=== PATIENT | male | born 1965 | race Caucasian/White ===

== ENCOUNTER 2016-12-13 15:40 | Inpatient (IN) | payer MEDICAID, OTHER ==
[~2016-12-13] VITALS: Ht 182.9 cm; Wt 74.8 kg
--- NOTE | 2016-12-13 16:01 | NUR ---
PT TO ED ROOM 02./ MID STERNAL CHEST PRESSURE X 4 DAYS, WORSENING AT NIGHT . A/A/O. SIDE RAISL UP. HOB ELEVATED. CONNECTED TO MONITOR. AWAITING EVALUATION BY ER PROVIDER.
[2016-12-13 16:23] LABS: BASOPHILS % (AUTO) 0.3 % (0.0-2.0); EOSINOPHILS # (AUTO) 0.1 /CMM (0.0-0.7); EOSINOPHILS % (AUTO) 0.7 % (0.0-6.0); HEMATOCRIT 47 % (39-51); HEMOGLOBIN 15.9 g/dL (13.5-17.5); LYMPHOCYTES # (AUTO) 3.8 /CMM (0.8-4.8); MEAN CORPUSCULAR HEMOGLOBIN 33 PG (26.0-33.0); MEAN CORPUSCULAR HGB CONC 34 g/dl (31.0-36.0); MEAN CORPUSCULAR VOLUME 99 fL (80-96); MONOCYTES # (AUTO) 0.9 /CMM (0.1-1.30); NEUTROPHILS # (AUTO) 7.8 /CMM (1.8-8.9); PLATELET COUNT (AUTO) 197 /CMM (150-450); RDW COEFFICIENT OF VARIATION 12.5 (11.5-15.0); RED BLOOD CELL COUNT(AUTO) 4.77 MIL/uL (4.5-6.0); WHITE BLOOD COUNT (AUTO) 12.6 K/uL (4.3-11.0)
--- NOTE | 2016-12-13 16:30 | NUR ---
television news photographer notes Received report from Shashank ENGRAVER [employer]OD and will put all admission orders and diet in the system. NPO patient post midnight. Vital signs checked and recorded. Endorsed to next shift RN to continue care.
[2016-12-13 16:36] LABS: CALCIUM, SERUM 9.3 mg/dL (8.5-10.1); CARBON DIOXIDE 30 mmol/L (21-32); CHLORIDE 105 mmol/L (98-107); CREATININE 0.9 mg/dL (0.6-1.3); GLUCOSE 93 mg/dL (74-106); INR 0.91 (0.87-1.13); POTASSIUM 3.7 mmol/L (3.5-5.1); PROTHROMBIN TIME 9.5 SECS (9.5-12.7); SODIUM SERUM 139 mmol/L (136-145); UREA NITROGEN, BLOOD 8 mg/dL (7-18)
[2016-12-13 16:44] LABS: ALANINE AMINOTRANSFERASE 44 U/L (12-78); ALKALINE PHOSPHATASE 90 U/L (46-116); ASPARTATE AMINOTRANSFERASE 25 U/L (15-37); BILIRUBIN,DIRECT 0.1 mg/dL (0.0-0.2); BILIRUBIN,TOTAL 0.8 mg/dL (0.2-1.0); LIPASE 236 U/L (73-393); TOTAL PROTEIN, SERUM 8.2 g/dL (6.4-8.2)
[2016-12-13 16:49] LABS: TROPONIN I < 0.017 ng/mL (0.00-0.056)
[2016-12-13] MEDS ORDERED: NITROGLYCERIN PACKET 1 GM PACKET ONE (16:59)
[2016-12-13] MEDS ORDERED: ASPIRIN 325 MG TABLET ONE (16:59)
[2016-12-13] MEDS ORDERED: NITROGLYCERIN PACKET 1 GM PACKET TOP ONE (17:00)
[2016-12-13] MEDS ORDERED: ASPIRIN 325 MG TABLET PO ONE (17:00)
[2016-12-13] MEDS ORDERED: MAG HYDROX/AL HYDROX/SIMETH 30 ML UDC PO PRN ×2 (17:30→18:30)
[2016-12-13] MEDS ORDERED: ABAC1TAB15 PO (17:30)
[2016-12-13] MEDS ORDERED: DILT180C53 PO (17:30)
[2016-12-13] MEDS ORDERED: MORPHINE SULFATE INJ 2 MG/ML DISP.SYRIN IV PRN ×2 (17:30→18:30)
[2016-12-13] MEDS ORDERED: ONDANSETRON HCL/PF 4 MG/2 ML VIAL IVP PRN ×2 (17:30→18:30)
[2016-12-13] MEDS ORDERED: FLUC200T PO (17:30)
[2016-12-13] MEDS ORDERED: MAGNESIUM HYDROXIDE 30 ML UDC PO PRN ×2 (17:30→18:30)
[2016-12-13] MEDS ORDERED: NITROGLYCERIN 0.4 MG/TAB BOTTLE SL PRN ×2 (17:30→18:30)
[2016-12-13] MEDS ORDERED: ACETAMINOPHEN 325 MG TABLET PO PRN ×2 (17:30→18:30)
[2016-12-13] MEDS ORDERED: ZOLPIDEM TARTRATE 5 MG TABLET PO PRN ×2 (17:30→18:30)
[2016-12-13] MEDS ORDERED: HYDROCODONE/APAP 5/325MG 1 EACH TABLET PO PRN ×2 (17:30→18:30)
[2016-12-13] MEDS ORDERED: CALC-108 PO (17:30)
--- NOTE | 2016-12-13 18:14 | NUR ---
REPORT GIVEN AT BEDSIDE- 316.1
[2016-12-13 18:30] VITALS: BP 115/72
[2016-12-13 19:00] VITALS: BP 105/93
--- NOTE | 2016-12-13 19:00 | NUR ---
RN NOTES NEW ADMISSION FROM ER WITH DX OF CHEST PAIN AND POSSIBLE ACUTE CORONARY SYNDROME. ALERT AND ORIENTED X4, CALM, SITTING ON HIGH DAVIS'S, USING COMPUTER, NO SOB, NO DISTRESS, LUNG SOUNDS ARE CLEAR, DENIES ANY CHEST AT THIS TIME, ABDOMEN SOFT AND NON-TENDER, ACTIVE BOWEL SOUNDS, AMBULATORY. DENIES ANY WEAKNESS. ADMITTED TO DRINKING ALCOHOL BEFORE THE CHEST PAIN. SKIN ASSESSMENT PERFORMED, EDUCATED ON PLAN OF CARE AND LABORATORY TESTINGS, ORIENTED TO ROOM AND USE OF CALL LIGHT, WILL CONTINUE TO MONITOR.
[2016-12-13 20:00] VITALS: BP_SYST 105; BP_DIAS 74; BP_DIAS 93
[2016-12-13] MEDS ORDERED: FLUCONAZOLE (100 MG) 100 MG TABLET PO SCH (21:00)
[2016-12-14] VITALS: BP 99/70
--- NOTE | 2016-12-14 01:15 | NUR ---
RN NOTES PATIENT REQUESTED NOT TO BE DISTURBED. PATIENT HAS NO DISTRESS, REMINDED PATIENT TO USE CALL LIGHT FOR HELP
--- NOTE | 2016-12-14 06:51 | NUR ---
RN NOTES PATIENT RESTING COMFORTABLY, EASILY AROUSEABLE, NO COMPLAIN OF CHEST PAIN DURING SHIFT, TROPONIN NEGATIVE X2, AWARE OF BEING NPO AND STRESS TEST IN AM.
[2016-12-14 07:14] LABS: BASOPHILS % (AUTO) 0.4 % (0.0-2.0); EOSINOPHILS # (AUTO) 0.1 /CMM (0.0-0.7); EOSINOPHILS % (AUTO) 0.8 % (0.0-6.0); HEMATOCRIT 46 % (39-51); HEMOGLOBIN 15.3 g/dL (13.5-17.5); LYMPHOCYTES # (AUTO) 2.7 /CMM (0.8-4.8); MEAN CORPUSCULAR HEMOGLOBIN 33 PG (26.0-33.0); MEAN CORPUSCULAR HGB CONC 34 g/dl (31.0-36.0); MEAN CORPUSCULAR VOLUME 100 fL (80-96); MONOCYTES # (AUTO) 0.7 /CMM (0.1-1.30); MONOCYTES % (AUTO) 7.3 % (2.0-12.0); NEUTROPHILS # (AUTO) 6.1 /CMM (1.8-8.9); NEUTROPHILS % (AUTO) 63.5 % (43.0-81.0); PLATELET COUNT (AUTO) 175 /CMM (150-450); RDW COEFFICIENT OF VARIATION 13.4 (11.5-15.0); RED BLOOD CELL COUNT(AUTO) 4.57 MIL/uL (4.5-6.0); WHITE BLOOD COUNT (AUTO) 9.6 K/uL (4.3-11.0)
--- NOTE | 2016-12-14 07:30 | NUR ---
RN OPENING NOTES RECEIVED PT. IN BED A&OX4. NO SOB, BREATHING UNLABORED, AND EVENLY. PT. DENIES CHEST PAIN, AND NO S/S OF ACUTE DISTRESS. IV ACCESS ON LEFT ANTECUBITAL SITE IS INTACT AND PATENT WITH SALINE FLUSH. BED IS IN LOWEST, LOCKED POSITION, 2 SIDE RAILS UP, AND INSTRUCTED PT. TO USE CALL LIGHT FOR ASSISTANCE. WILL CONTINUE TO ASSESS AND MONITOR.
[2016-12-14 07:38] LABS: THYROID STIMULATING HORMONE 1.622 uIU/mL (0.358-3.74)
[2016-12-14 07:44] LABS: CREATININE 0.8 mg/dL (0.6-1.3); POTASSIUM 4.4 mmol/L (3.5-5.1)
--- NOTE | 2016-12-14 08:30 | NUR ---
RN NOTES DISCUSSED WITH PT.'S TELE READING A-FIB 124 BPM AND PRESSURE IN CHEST AREA ON REST, PER MD OKAY TO GIVE MEDICATIONS.
[2016-12-14 08:37] VITALS: BP 110/69
--- NOTE | 2016-12-14 08:45 | NUR ---
RN NOTES DISCUSSED WITH HIS HOME MEDICATION [facility], PT. SAID THAT HE HAS MEDICATION AT HOME AND TOOK HIS LAST DOSE YESTERDAY. PT. SAID THAT HE CAN HAVE SOMEONE BRING IT FOR HIM IF HE NEEDS TO STAY OVERNIGHT.
[2016-12-14] MEDS ORDERED: CALCIUM CARB 250MG /VITAMIN D 1 UDTAB PO SCH (09:00)
[2016-12-14] MEDS ORDERED: ASPIRIN 325 MG TABLET PO SCH ×2 (09:00)
[2016-12-14] MEDS ORDERED: DILTIAZEM HCL CD 180 MG PO SCH (09:00)
--- NOTE | 2016-12-14 09:44 | NUR ---
RN NOTES PT. WAS SEEN AND EXAMINED BY DR. DA SILVA. PER MD STRESS TEST CAN BE SCHEDULED TOMORROW. PT. DENIES CHEST PAIN, AND REQUESTED TO GO HOME TODAY. PER MD PT. CAN AMBULATE AT [facility] AND IF PT. IS ASYMPTOMATIC FROM CHEST PAIN IS OKAY TO GO HOME TODAY, AND WAS RECOMMENDED TO SCHEDULE A STRESS TEST WITH HIS DOCTOR. PT. VERBALIZED UNDERSTANDING.
[2016-12-14] MEDS ORDERED: ASPI81TA2 PO (11:40)
--- NOTE | 2016-12-14 17:06 | NUR ---
[employer]ER PT. WAS DISCHARGED IN MEDICALLY STABLE CONDITION. PT. SAID THAT HE IS OKAY TO DRIVE HIMSELF HOME. PT. WAS PROVIDED DISCHARGE EDUCATION, AND INSTRUCTIONS AND VERBALIZED UNDERSTANDING. REMOVED ID BAND, AND IV WITHOUT COMPLICATIONS. PT. LEFT WITH DISCHARGE PACKET.
== END 2016-12-14 16:43 | disposition home or self-care (01) | DRG 203 ==
LOC: ER 15:43 → TELE 18:32
PROVIDERS: ADMIT Nurse Practitioner Acute Care; ATTEND Nurse Practitioner Acute Care
DX: M94.0 Chondrocostal junction syndrome [Tietze] (principal); D68.59 Other primary thrombophilia; I48.2 Chronic atrial fibrillation; E78.5 Hyperlipidemia, unspecified; I10 Essential (primary) hypertension
CPT/HCPCS: 36415; 71010-TC; 80048-TC; 80061-TC; 80076-TC; 83690-TC; 83735-TC; 84443-TC; 84484-TC; 85025-TC; 85730-TC; 87081-TC; 93307-TC; A4606; G0480; Z7610

== ENCOUNTER 2016-12-20 11:07 | Outpatient (CLI) | payer MEDICAID, OTHER ==
[~2016-12-20 11:07] MED LIST: ABAC1TAB15 PO; ASPI-1169 PO; CALC-261 PO; DILT180C53 PO; FLUC200T PO
[2016-12-20] MEDS ORDERED: FLUCONAZOLE 200 MG PO SCH (11:30)
[2016-12-21] MEDS ORDERED: DILTIAZEM HCL CD 180 MG PO SCH (09:00)
[2016-12-21] MEDS ORDERED: Medication Not On Formulary EA (Calcium Carbonate/Vitamin D3 (Calcium 500 + Vit D 200 Ta PO SCH (09:00)
[2016-12-21] MEDS ORDERED: ASPIRIN 81 MG TAB.CHEW PO SCH (09:00)
== END 2016-12-20 23:59 | disposition home or self-care (01) ==
LOC: MSC 11:07
PROVIDERS: ATTEND Internal Medicine
DX: I48.2 Chronic atrial fibrillation (principal); I10 Essential (primary) hypertension